=== PATIENT | female | born 1980 | race Two or more races ===

== ENCOUNTER 2019-02-20 23:02 | Emergency (ER) | payer SELFPAY ==
[~2019-02-20] VITALS: Ht 167.6 cm; Wt 80.0 kg
[2019-02-20 23:07] VITALS: BP 133/70
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
--- NOTE | 2019-02-21 00:18 | NUR ---
Pt sleeping comfortably on gurney. Nadn. Rr even and unlabored. Sating appropriately on monitor.
--- NOTE | 2019-02-21 01:24 | NUR ---
Pt sleeping comfortably on gurney. Nadn. Rr even and unlabored. Refusing to allow staff to place spo2 back on.
== END 2019-02-21 01:50 | disposition home or self-care (01) ==
LOC: ED 23:59
DX: F10.220 Alcohol dependence with intoxication, uncomplicated (principal); G92 Toxic encephalopathy; Z72.9 Problem related to lifestyle, unspecified; Z75.9 Unspecified problem related to medical facilities and other health care; Z91.14 Patient's other noncompliance with medication regimen; Z63.8 Other specified problems related to primary support group; Y90.9 Presence of alcohol in blood, level not specified
CPT/HCPCS: 36415; 80307; 99283